=== PATIENT | female | born 1965 | race Caucasian/White ===

== ENCOUNTER 2016-08-01 10:30 | Emergency (ER) | payer MEDICAID, OTHER ==
[2016-08-01 12:22] VITALS: BP 143/86
--- NOTE | 2016-08-01 12:40 | UC ---
Upper Extremity HPI - HPI Summary HPI Summary: patient had a heavy dea roll over her toe 1 month ago. still very painful and hard to ear her shoes. - History of Current Complaint Chief Complaint: UCLowerExtremity Stated Complaint: TOE INJURY Time Seen by Provider: 08/01/16 12:23 Hx Obtained From: Patient Hx Last Menstrual Period: 10/29/14 ?: No Onset/Duration: Sudden Onset, Lasting Weeks Severity Initially: Severe Severity Currently: Moderate Pain Intensity: 6 Pain Scale Used: 0-10 Numeric Location Of Pain: Is Discrete @ - left 5th toe Character: Sharp, Aching Aggravating Factor(s): Movement Alleviating Factor(s): Nothing Associated Signs And Symptoms: Positive: Numbness/Tingling - Risk Factors Non-Orthopedic Risk Factor: Negative DVT Risk Factors: Negative - Allergies/Home Medications Allergies/Adverse Reactions: Allergies Allergy/AdvReac Type Severity Reaction Status Date / Time Bee Venom Allergy Severe Swelling Verified 10/30/14 10:50 Home Medications: Home Medications Cyclobenzaprine (NF) 10 mg 08/01/16 [History] Tramadol HCl [Ultram] 08/01/16 [History] PMH/Surg Hx/FS Hx/Imm Hx Previously Healthy: Yes Endocrine History Of: Denies: Diabetes, Thyroid Disease Cardiovascular History Of: Denies: Cardiac Disorders, Hypertension Respiratory History Of: Reports: Asthma Denies: COPD GI/ History Of: Denies: Ulcer Cancer History Of: Denies: Breast Cancer - Surgical History Surgical History: Yes Surgery Procedure, Year, and Place: tubal ligation, appy - Family History Known Family History: Negative: Cardiac Disease, Hypertension - Social History Alcohol Use: Rare Substance Use Type: None Smoking Status (MU): Heavy Every Day Tobacco Smoker Type: Cigarettes Have You Smoked in the Last Year: Yes - And Stated "I am not quitting" Household Exposure Type: Cigarettes Review of Systems Constitutional: Negative Skin: Negative Eyes: Negative ENT: Negative Respiratory: Negative Cardiovascular: Negative Gastrointestinal: Negative Genitourinary: Negative Motor: Negative Neurovascular: Negative Musculoskeletal: Arthralgia Neurological: Negative Psychological: Negative All Other Systems Reviewed And Are Negative: Yes Physical Exam Triage Information Reviewed: Yes Appearance: Well-Appearing, Well-Nourished, Pain Distress Vital Signs: Initial Vital Signs Temp 98.0 F 08/01/16 12:16 Pulse 85 08/01/16 12:16 Resp 16 08/01/16 12:16 BP 143/86 08/01/16 12:16 Pulse Ox 99 08/01/16 12:16 Vital Signs Reviewed: Yes Eye Exam: Normal Eyes: Positive: Conjunctiva Clear ENT Exam: Normal ENT: Positive: Normal ENT inspection, Hearing grossly normal, TMs normal Dental: Positive: Gross Decay/Caries @ Neck exam: Normal Neck: Positive: Supple, Nontender, No Lymphadenopathy Respiratory Exam: Normal Respiratory: Positive: Chest non-tender, Lungs clear, Normal breath sounds Cardiovascular Exam: Normal Cardiovascular: Positive: RRR, No Murmur, Pulses Normal Abdominal Exam: Normal Abdomen Description: Positive: Nontender, No Organomegaly, Soft Bowel Sounds: Positive: Present Musculoskeletal Exam: Normal Musculoskeletal: Positive: Strength Intact, ROM Intact, No Edema, ROM Limited @ , Other: - toe is painful to touch, able to move it. no swelling or bruising Upper Extremity Course/Dx - Course Course Of Treatment: hx obtained, exam performed, xray obtained, no fracture noted, post op shoe and recommendation of warm soaks and protection of foot while at work, referral name given for ortho if symptoms persist for more than a few weeks. - Differential Dx/Diagnosis Differential Diagnosis/HQI/PQRI: Contusion, Fracture (Open) Provider Diagnoses: numbness in left 5th toe. contusion Discharge - Discharge Plan Condition: Stable Disposition: HOME Referrals: David De La Fuente MD [Primary Care Provider] - Juan Watts MD [Medical Doctor] - Additional Instructions: No fracture was noted on your toe xray. The numbness and tingling may last for a little while. I recommend warm foot soaks in increase circulation. continue to use the post op shoe for protection ans support. floow up with orthopedic if pain and numbness persist for more than a few weeks.
--- NOTE | 2016-08-01 12:57 | RAD ---
Indication: Left fifth toe injury. 3 views of the fifth digit demonstrates no fracture or dislocation. No other bone or joint abnormality is noted. IMPRESSION: No definite fracture of the left fifth toe toe is noted.
== END 2016-08-01 13:40 | disposition home or self-care (01) ==
LOC: UCEAST 10:30
DX: S90.122A Contusion of left lesser toe(s) without damage to nail, initial encounter (principal); X58.XXXA Exposure to other specified factors, initial encounter; Y93.9 Activity, unspecified; Y92.9 Unspecified place or not applicable; R20.0 Anesthesia of skin; R03.0 Elevated blood-pressure reading, without diagnosis of hypertension; F17.210 Nicotine dependence, cigarettes, uncomplicated
CPT/HCPCS: 99201; G0463

== ENCOUNTER 2016-11-04 14:54 | Emergency (ER) | payer OTHER ==
--- NOTE | 2016-11-04 15:05 | UC ---
Throat Pain/Nasal Parker HPI - HPI Summary HPI Summary: complaint of nasal congestion and cough that started 2 days ago cough has worseneing started coughing up phlegm greenish having coughing fits recently smoking more lately 1ppd d/t leno hasn't used an albuterol inahler because she lost inhaler denies fever and chills - History of Current Complaint Stated Complaint: COUGHING Time Seen by Provider: 11/04/16 15:04 Hx Obtained From: Patient Hx Last Menstrual Period: 10/29/14 - Allergies/Home Medications Allergies/Adverse Reactions: Allergies Allergy/AdvReac Type Severity Reaction Status Date / Time Bee Venom Allergy Severe Swelling Verified 10/30/14 10:50 PMH/Surg Hx/FS Hx/Imm Hx Previously Healthy: Yes Endocrine History Of: Denies: Diabetes, Thyroid Disease Cardiovascular History Of: Denies: Cardiac Disorders, Hypertension Respiratory History Of: Reports: Asthma Denies: COPD GI/ History Of: Denies: Ulcer Cancer History Of: Denies: Breast Cancer - Surgical History Surgical History: Yes Surgery Procedure, Year, and Place: tubal ligation, appy - Family History Known Family History: Negative: Cardiac Disease, Hypertension, Diabetes - Social History Occupation: Unemployed Lives: With Family Alcohol Use: Rare Substance Use Type: None Smoking Status (MU): Heavy Every Day Tobacco Smoker Type: Cigarettes Have You Smoked in the Last Year: Yes - And Stated "I am not quitting" Household Exposure Type: Cigarettes Cessation Counseling: Patient Advised to Stop Review of Systems Constitutional: Negative Skin: Negative Eyes: Negative ENT: Sore Throat, Nasal Discharge Respiratory: Cough Cardiovascular: Negative Gastrointestinal: Negative Genitourinary: Negative Motor: Negative Neurovascular: Negative Musculoskeletal: Negative Neurological: Negative Psychological: Negative All Other Systems Reviewed And Are Negative: Yes Physical Exam Triage Information Reviewed: Yes Appearance: No Pain Distress, Well-Nourished Vital Signs Reviewed: Yes Eyes: Positive: Conjunctiva Clear ENT: Positive: Pharyngeal erythema, Nasal congestion, Nasal drainage, TMs normal Neck: Positive: No Lymphadenopathy Respiratory: Positive: No respiratory distress, No accessory muscle use, Wheezing - throughout Cardiovascular: Positive: RRR, No Murmur, Pulses Normal Abdomen Description: Positive: Nontender, Soft Bowel Sounds: Positive: Present Musculoskeletal: Positive: No Edema Neurological Exam: Normal Psychological Exam: Normal Skin Exam: Normal Throat Pain/Nasal Course/Dx - Differential Dx/Diagnosis Differential Diagnosis/HQI/PQRI: Pharyngitis, URI, Other - asthma exacerbation, bronchitis Provider Diagnoses: asthma exacerabtion Discharge - Discharge Plan Condition: Stable Disposition: HOME Prescriptions: Albuterol HFA INHALER* [Ventolin HFA Inhaler*] 2 puff INH Q4H PRN #1 mdi PRN Reason: Wheezing Azithromyxin ALVIN (NF) [Z-Alvin (Zithromax) 250 mg tabs #6] 2 tab PO .TODAY, THEN 1 DAILY #6 tab predniSONE TAB* [Deltasone TAB*] 50 mg PO DAILY #5 tab Patient Education Materials: Asthma (ED), Acute Bronchitis (ED) Referrals: David De La Fuente MD [Primary Care Provider] - Additional Instructions: Please take antibiotic as directed Use your albuterol inhaler every 4-6 hours when needed for wheezing, shortness of breath or uncontrolled coughing. Increase fluids and rest Take acetaminophen or ibuprofen for fever or pain Please review your discharge instructions. If your symptoms do not improve please call your primary care provider or return to urgent care.
[2016-11-04 15:17] VITALS: BP 122/87
== END 2016-11-04 15:52 | disposition home or self-care (01) ==
LOC: UCEAST 14:54
DX: J45.901 Unspecified asthma with (acute) exacerbation (principal); Z91.030 Bee allergy status; F17.210 Nicotine dependence, cigarettes, uncomplicated
CPT/HCPCS: 99201; G0463

== ENCOUNTER 2016-11-19 09:12 | Emergency (ER) | payer OTHER ==
[2016-11-19 09:26] VITALS: BP 124/85
--- NOTE | 2016-11-19 09:55 | UC ---
Complaint Female HPI - HPI Summary HPI Summary: complaint of recently exposure to STD's partner slept with other partners last night slight vaginal discharge and itching but thought it was a yeast infection from antibiotics- using a vaginal cream with relief also has a thick white coating in her mouth since finishing antibiotics still has a cough with purulent sputum sometimes- treated for bronchitis 11/04/16 feels like she is getting better denies fever, dysuria, abdominal pain - History Of Current Complaint Chief Complaint: UCSTDScreening Stated Complaint: STD TESTING Time Seen by Provider: 11/19/16 09:46 Hx Obtained From: Patient Hx Last Menstrual Period: 11/04/16 - Allergies/Home Medications Allergies/Adverse Reactions: Allergies Allergy/AdvReac Type Severity Reaction Status Date / Time Bee Venom Allergy Severe Swelling Verified 11/19/16 09:17 PMH/Surg Hx/FS Hx/Imm Hx Previously Healthy: Yes Endocrine History Of: Denies: Diabetes, Thyroid Disease Cardiovascular History Of: Denies: Cardiac Disorders, Hypertension Respiratory History Of: Reports: Asthma Denies: COPD GI/ History Of: Denies: Ulcer Cancer History Of: Denies: Breast Cancer - Surgical History Surgical History: Yes Surgery Procedure, Year, and Place: tubal ligation, appy - Family History Known Family History: Negative: Cardiac Disease, Hypertension, Diabetes - Social History Occupation: Employed Full-time Lives: With Family Alcohol Use: Rare Substance Use Type: None Smoking Status (MU): Heavy Every Day Tobacco Smoker Type: Cigarettes Amount Used/How Often: about a pack/day Have You Smoked in the Last Year: Yes - And Stated "I am not quitting" Household Exposure Type: Cigarettes Cessation Counseling: Patient Advised to Stop Review of Systems Constitutional: Negative Skin: Negative Eyes: Negative ENT: Negative Respiratory: Cough Cardiovascular: Negative Gastrointestinal: Negative Genitourinary: Other - vaginal discharge Motor: Negative Neurovascular: Negative Musculoskeletal: Negative Neurological: Headache Psychological: Negative All Other Systems Reviewed And Are Negative: Yes Physical Exam Triage Information Reviewed: Yes Appearance: No Pain Distress, Well-Nourished Vital Signs: Initial Vital Signs Temp 98.5 F 11/19/16 09:19 Pulse 99 11/19/16 09:19 Resp 16 11/19/16 09:19 BP 124/85 11/19/16 09:19 Pulse Ox 98 11/19/16 09:19 Vital Signs Reviewed: Yes Eyes: Positive: Conjunctiva Clear ENT: Positive: Pharyngeal erythema, Other: - white coating around tongue. Negative: Nasal congestion, TMs normal Neck: Positive: No Lymphadenopathy Respiratory: Positive: Lungs clear, Normal breath sounds, No respiratory distress Cardiovascular: Positive: RRR, No Murmur, Pulses Normal Abdomen Description: Positive: Nontender, Soft. Negative: CVA Tenderness (R), CVA Tenderness (L), Distended, Guarding Bowel Sounds: Positive: Present Musculoskeletal: Positive: No Edema Neurological: Positive: Alert Psychological Exam: Normal Skin Exam: Normal - External genitalia without erythema, exudate or discharge. Vaginal vault is without discharge. Cervix is of normal color without lesion. The os is closed. There is no bleeding noted. Uterus is noted to be of normal size and nontender. No cervical motion tenderness is seen. No masses are palpated. The adnexa are without masses or tenderness. Complaint Female Dx - Course Course Of Treatment: exam completed. will treat for oral candidiasis. no signs of vaginal infection at this time will wait for testing results. bronchitis resolving - Differential Dx/Diagnosis Differential Diagnosis/HQI/PQRI: Sexually Transmitted Disease Provider Diagnoses: thrush, STD testing Discharge - Discharge Plan Condition: Stable Disposition: HOME Prescriptions: Nystatin SUSPENSION ORAL SYR* 100,000 units PO QID #112 ml Patient Education Materials: Sexually Transmitted Diseases (ED), How to Stop Smoking (ED), Oral Candidiasis (ED) Referrals: No Primary Care Phys,NOPCP [Primary Care Provider] - Additional Instructions: Please start nystatin as directed Your test results will be completed in 4-5 days please call urgent care for your results Increase fluids and rest Please review your discharge instructions. If your symptoms do not improve please call your primary care provider or return to urgent care. Your blood pressure is pre-hypertensive reading. Please contact your primary care provider within 1 day -4 weeks for further evaluation
--- NOTE | 2016-11-20 23:08 | UC ---
Progress - Progress Note Progress Note: VAGINAL SWAB POSITIVE FOR BV. FLAGYL ERX SENT TO [facility] IN [place]. NO ETOH WHILE TAKING THIS MED. FOLLOW-UP PCP IF NEEDED.
[2016-11-21 12:20] LABS: Syphilis Index < 0.1 Index
--- NOTE | 2016-11-22 19:40 | UC ---
Progress - Progress Note Progress Note: VAGINAL SWAB POSITIVE FOR BV. FLAGYL ERX SENT TO [facility] IN [place]. NO ETOH WHILE TAKING THIS MED. FOLLOW-UP PCP IF NEEDED. - Results/Orders Results/Orders: STD testing currently negative---recommend re-testing in 2 weeks from last exposure and either no sexual contact until 2nd set of results are negative
== END 2016-11-19 10:24 | disposition home or self-care (01) ==
LOC: UCEAST 09:12
DX: Z20.2 Contact with and (suspected) exposure to infections with a predominantly sexual mode of transmission (principal); B37.0 Candidal stomatitis; Z91.030 Bee allergy status; J45.909 Unspecified asthma, uncomplicated; F17.210 Nicotine dependence, cigarettes, uncomplicated
CPT/HCPCS: 36415; 86592; 86703; 86803; 87480; 87491; 87510; 87591; 87661; 99212; G0463

== ENCOUNTER 2017-01-05 10:57 | Emergency (ER) | payer BC, OTHER ==
[2017-01-05 11:07] VITALS: BP 115/78
--- NOTE | 2017-01-05 12:14 | RAD ---
Indication: Progressive posterior RIGHT lower rib pain. Cold symptoms. History of tobacco use. Comparison: No relevant prior exams available on the [facility] [place] for comparison. Technique: PA and lateral chest views. 5 view RIGHT unilateral rib series. Report: Clear lungs and pleural spaces. Negative for pneumothorax. The heart, pulmonary vasculature, and mediastinal contours are unremarkable. No RIGHT rib fracture or focal osseous lesion evident. Unremarkable soft tissue contours. IMPRESSION: 1. No evidence for pneumonia. 2. No evidence for RIGHT rib fracture.
--- NOTE | 2017-01-05 12:19 | RAD ---
Indication: Progressive posterior RIGHT lower rib pain. Cold symptoms. History of tobacco use. Comparison: No relevant prior exams available on the [facility] for comparison. Technique: PA and lateral chest views. 5 view RIGHT unilateral rib series. Report: Clear lungs and pleural spaces. Negative for pneumothorax. The heart, pulmonary vasculature, and mediastinal contours are unremarkable. No RIGHT rib fracture or focal osseous lesion evident. Unremarkable soft tissue contours. IMPRESSION: 1. No evidence for pneumonia. 2. No evidence for RIGHT rib fracture.
--- NOTE | 2017-01-09 12:17 | UC ---
gertrudis Marie Timothy, scribed for Bryanna Bhatt MD on 01/05/17 at 1143 . Cardiac HPI - HPI Summary HPI Summary: Abbey Anguiano is a 51 yo female presenting to [facility] with 8/10 right sided rib pain beginning 0100 this morning when she woke up after doing some heavy lifting at 2000 the previous evening. She denies any pain at 2000, but notes some discomfort at 0100 which has gotten progressively worse. She states that she felt pain similar to when she had her appendix taken out. She states her pain decreases with the position. Her pain increases with standing or any change in position. She denies SOB or injury, as well as fever, rash, throat pain, sinus pain. She notes that she has some mildly productive cough from her lung pathology. She also has had hematuria for which she is going to see an urologist. She also notes she had uncontrollable shakes when on xanax, for which she will see a neurologist. She states she is on azithromycin for a lung pathology since 01/02/17. Her MHx includes asthma, tubal ligation, appendectomy, depression, tobacco use. - History of Current Complaint Chief Complaint: UCGeneralIllness Stated Complaint: RIB PAIN Time Seen by Provider: 01/05/17 11:32 Hx Obtained From: Patient Onset/Duration: Gradual Onset, Lasting Days, Still Present Timing: Constant Initial Severity: Moderate Current Severity: Moderate Chest Pain Location: Diffuse - right side ribs Associated Signs & Symptoms: Positive: Chest Pain - rib pain - Allergy/Home Medications Allergies/Adverse Reactions: Allergies Allergy/AdvReac Type Severity Reaction Status Date / Time Bee Venom Allergy Severe Swelling Verified 01/05/17 11:07 Home Medications: Home Medications Citalopram TAB* [CeleXA TAB*] 10 mg PO DAILY 01/05/17 [History Confirmed ] buPROPion SR TAB* [Wellbutrin SR TAB*] 100 mg PO 01/05/17 [History] PMH/Surg Hx/FS Hx/Imm Hx Respiratory History: Asthma Psychological History: Depression - Surgical History Surgical History: Yes Surgery Procedure, Year, and Place: tubal ligation, appy - Family History Known Family History: Negative: Cardiac Disease, Hypertension, Diabetes - Social History Alcohol Use: Rare Substance Use Type: None Smoking Status (MU): Heavy Every Day Tobacco Smoker Type: Cigarettes Amount Used/How Often: about a pack/day Have You Smoked in the Last Year: Yes - And Stated "I am not quitting" Household Exposure Type: Cigarettes Review of Systems Constitutional: Negative Skin: Negative Eyes: Negative ENT: Negative Respiratory: Cough Cardiovascular: Chest Pain - right side rib pain Gastrointestinal: Negative Genitourinary: Hematuria Motor: Negative Neurovascular: Negative Musculoskeletal: Negative Neurological: Other - "uncontrollable shakes" Psychological: Negative All Other Systems Reviewed And Are Negative: Yes Physical Exam Triage Information Reviewed: Yes Appearance: Well-Appearing, No Pain Distress, Well-Nourished Vital Signs: Initial Vital Signs Temp 98.2 F 01/05/17 11:02 Pulse 88 01/05/17 11:02 Resp 18 01/05/17 11:02 BP 115/78 01/05/17 11:02 Pulse Ox 99 01/05/17 11:02 Vital Signs Reviewed: Yes Eye Exam: Normal ENT Exam: Normal ENT: Positive: Normal ENT inspection Dental Exam: Normal Neck exam: Normal Neck: Positive: Supple, No Lymphadenopathy - no adenopathy appreciated Respiratory: Positive: Lungs clear, Normal breath sounds, No respiratory distress Cardiovascular Exam: Normal Cardiovascular: Positive: RRR, No Murmur, Pulses Normal, Brisk Capillary Refill Abdominal Exam: Normal Abdomen Description: Positive: Nontender, No Organomegaly, Soft Bowel Sounds: Positive: Present Musculoskeletal: Positive: Strength Intact, Other: - Her right lower lateral ribs are tender, no appreciation of deformity or crepitus. There is no rash. There is some low back tenderness. Neurological Exam: Normal - nonfocal, grossly intact Psychological Exam: Normal - conversing easily and appropriately Skin Exam: Normal Diagnostics - Radiology Right Rib XR Xray Interpretation: No Acute Changes - IMPRESSION: 1. No evidence for pneumonia. 2. No evidence for RIGHT rib fracture. Radiology Interpretation Completed By: Radiologist CXR Xray Interpretation: No Acute Changes - IMPRESSION: 1. No evidence for pneumonia. 2. No evidence for RIGHT rib fracture. Radiology Interpretation Completed By: Radiologist - Assessment/Plan Course Of Treatment: Abbey Anguiano is a 51 yo female presenting to [facility] with 8/ 10 right sided rib pain since yesterday evening, denying any known trauma. Pt medication list reviewed this visit. Attempted to examine Pt at 1132, but Pt was not in room as she was having her XR's performed. Her R Rib XR and CXR suggest no evidence for PNA or Fx. She will be discharged home with right lower rib injury. - Differential Diagnoses - Chest Pain Differential Diagnosis/HQI/PQRI: Other: - Fx - Clinical Impression Provider Diagnoses: right lower rib injury Discharge - Discharge Plan Condition: Stable Disposition: HOME Patient Education Materials: Chest Wall Pain (ED) Forms: *Work Release Referrals: David De La Fuente MD [Medical Doctor] - 1 Week Additional Instructions: Please follow up with your primary care physician regarding your visit to urgent care today. Return to urgent care or the emergency department with any new or recurring symptoms. Likely rib strain; however, it is important that you follow up with your doctor( s) for further evaluation as planned. Seek medical attention for worse or new problems in the meantime. Ibuprofen (anti-inflammatory) - as directed (by your doctor) as needed for pain / inflammation Muscle-relaxant (as prescribed by your doctor), as needed for muscle spasm. The documentation as recorded by the gertrudis hinojosa Timothy accurately reflects the service I personally performed and the decisions made by me, Bryanna Bhatt MD.
== END 2017-01-05 12:50 | disposition home or self-care (01) ==
LOC: UCEAST 10:57
DX: S29.9XXA Unspecified injury of thorax, initial encounter (principal); R05 Cough; X50.0XXA Overexertion from strenuous movement or load, initial encounter; Y93.9 Activity, unspecified; Y92.9 Unspecified place or not applicable; R31.9 Hematuria, unspecified; J45.909 Unspecified asthma, uncomplicated; F32.9 Major depressive disorder, single episode, unspecified; Z91.030 Bee allergy status; F17.210 Nicotine dependence, cigarettes, uncomplicated
CPT/HCPCS: 71020; 99211; G0463

== ENCOUNTER 2018-09-24 15:19 | Emergency (ER) | payer OTHER ==
[2018-09-24 15:44] VITALS: BP 117/75
--- NOTE | 2018-09-24 15:58 | UC ---
Ear Complaint HPI - HPI Summary HPI Summary: 52 y/o female presents to the urgent care c/o B/L ear pain, LF> RT for the past 2 days. Pt reports she has been w/ URI for more than a week, nasal congestion and moderate yellowish PND. She went to see her PCP about 4 days ago and Dx w/ Viral infections. His PCP told her left ear w/ fluid. Today ear pain is 5/10. She has been taking OTC medication to alleviate symptoms. Pt denies fever, but had chills last night. denies dizziness, tinnitus, CHAKRABORTY, SOB, chest pain, abdominal pain, - History of Current Complaint Chief Complaint: UCEar Stated Complaint: EAR COMPLAINT Time Seen by Provider: 09/24/18 15:55 Hx Obtained From: Patient Hx Last Menstrual Period: 3 years ago ?: No Onset/Duration: Gradual Onset, Lasting Days - 2 days, Still Present Severity Initially: Mild Severity Currently: Moderate Pain Intensity: 5 Pain Scale Used: 0-10 Numeric Alleviating Factors: OTC Meds Associated Signs/Symptoms: Positive: Hearing Loss, URI Symptoms - Allergies/Home Medications Allergies/Adverse Reactions: Allergies Allergy/AdvReac Type Severity Reaction Status Date / Time alprazolam [From Xanax] Allergy Severe shakiness, Verified 09/24/18 15:45 tremors bee venom protein (honey bee) Allergy Severe Swelling Verified 09/24/18 15:45 Home Medications: Home Medications Dicyclomine CAP* [Bentyl CAP*] 10 mg PO AC PRN 09/24/18 [History Confirmed 09/24] Gabapentin CAP(*) [Neurontin 300 CAP(*)] 1 tab PO DAILY 09/24/18 [History Confirmed 09/24/18] Levothyroxine TAB* [Synthroid TAB*] 1 tab PO DAILY 09/24/18 [History Confirmed 09/24/18] tiZANidine TAB* [Zanaflex TAB*] 1 tab PO Q8HR 09/24/18 [History Confirmed ] PMH/Surg Hx/FS Hx/Imm Hx Previously Healthy: Yes Endocrine History: Hypothyroidism Psychological History: Depression - Surgical History Surgical History: Yes Surgery Procedure, Year, and Place: tubal ligation, appy - Family History Known Family History: Positive: None - Pt denies FMHX Negative: Cardiac Disease, Hypertension, Diabetes - Social History Occupation: Employed Full-time Lives: With Family Alcohol Use: Rare Substance Use Type: None Smoking Status (MU): Heavy Every Day Tobacco Smoker Type: Cigarettes Amount Used/How Often: about a pack/day Have You Smoked in the Last Year: Yes - And Stated "I am not quitting" Household Exposure Type: Cigarettes Review of Systems All Other Systems Reviewed And Are Negative: Yes Constitutional: Positive: Negative Skin: Positive: Negative Eyes: Positive: Negative ENT: Positive: Ear Ache - B/L ear pain and pressure w/ decrease hearing, Nasal Discharge - yellowish, Sinus Congestion Respiratory: Positive: Negative Cardiovascular: Positive: Negative Gastrointestinal: Positive: Negative Genitourinary: Positive: Negative Motor: Positive: Negative Neurovascular: Positive: Negative Musculoskeletal: Positive: Negative Neurological: Positive: Negative Psychological: Positive: Negative Is Patient Immunocompromised?: No Physical Exam - Summary Physical Exam Summary: Vital signs: reviewed General: well developed, well nourished female sitting in the examining table w/ o any apparent distress Skin: Colstrip, warm and dry, no evidence of atopic dermatitis, psoriasis, seborrhea. HEENT: -Head: atraumatic, non tender; no scalp dermatitis. -Eyes: sclera and conjunctiva clear, PERRLA, EOMI -Ears: no pre- or postauricular lymphadenopathy or erythema; B/L external ear canal clear, B/L TM injected w/ erythema and yellowish purulent discharge LF > RT. No perforation. -Nose/Face: erythematous and edematous nasal mucosa with clear rhinorrhea, no frontal or maxillary sinus tender to palpation. -Mouth/Throat: Mucous membrane moist, posterior pharynx clear, no erythema or exudates. Neck: supple, FROM, nontender, no lymphadenopathy, no meningismus. Chest: Clear to auscultation, normal breath sounds Abd: soft, Bowel sounds active, Nontender. Back: no spinal or CVAT Neuro: A&O x4, GCS 15, no focal neuro deficits, normal behavior for age. Triage Information Reviewed: Yes Vital Signs: Initial Vital Signs Temp 97.9 F 09/24/18 15:39 Pulse 98 09/24/18 15:39 Resp 16 09/24/18 15:39 BP 117/75 09/24/18 15:39 Pulse Ox 99 09/24/18 15:39 Ear Complaint Course/Dx - Course Course Of Treatment: 52 y/o female presents to the urgent care c/o B/L ear pain, LF> RT for the past 2 days. Pt reports she has been w/ URI for more than a week, nasal congestion and moderate yellowish PND. She went to see her PCP about 4 days ago and Dx w/ Viral infections. His PCP told her left ear w/ fluid. Today ear pain is 5/10. She has been taking OTC medication to alleviate symptoms. Pt denies fever, but had chills last night. denies dizziness, tinnitus, CHAKRABORTY, SOB, chest pain, abdominal pain, Hx obtained. Pt w/ B/L otitis Media LF>RT on examination. Pt Rx Amoxicillin PO. Pt Advised to continue taking Ibuprofen to alleviate pain. Advised if symptoms do not improve or worsen to return to the urgent care or f/ u with ENT Dr Carrington for further management. PT understood and agreed with plan of care. - Differential Dx/Diagnosis Differential Diagnosis/HQI/PQRI: Cerumen Impaction, Otitis Externa, Otitis Media , Perforated TM Provider Diagnosis: Bilateral otitis media Discharge - Sign-Out/Discharge Documenting (check all that apply): Patient Departure - D/c home All imaging exams completed and their final reports reviewed: No Studies - Discharge Plan Condition: Critical Disposition: HOME Prescriptions: Amoxicillin PO (*) [Amoxicillin 875 MG (*)] 875 mg PO BID #20 tab Patient Education Materials: Ear Infection (ED) Referrals: Ivana ZHOU,Susan Walter [Primary Care Provider] - 3 Days Additional Instructions: 1- Please take the full course of the antibiotic to avoid resistance. Please take yogurt w/ probiotic or Culturelle to protect your GI system 2-Please continue taking ibuprofen PO q6-8hrs prn as instructed after meals to alleviate pain and swelling. Increase fluid intake, eat well, rest and avoid strenuous exercise 3-If symptoms do not improve or worsen please return to the urgent care or f/u with your PCP for further evaluation and treatment. - Billing Disposition and Condition Condition: CRITICAL Disposition: Home
== END 2018-09-24 16:15 | disposition home or self-care (01) ==
LOC: UCEAST 15:19
DX: H66.93 Otitis media, unspecified, bilateral (principal); E03.9 Hypothyroidism, unspecified; F32.9 Major depressive disorder, single episode, unspecified; Z88.8 Allergy status to other drugs, medicaments and biological substances; Z79.899 Other long term (current) drug therapy
CPT/HCPCS: 99212; G0463